=== PATIENT | male | born 1985 | race Caucasian/White ===

== ENCOUNTER 2017-03-31 08:44 | Emergency (ER) | payer OTHER ==
[2017-03-31 08:52] VITALS: BP 128/63
--- NOTE | 2017-03-31 09:02 | ED Physician Documentation ---
PD HPI BACK PAIN - Stated complaint Stated Complaint: LOW BACK PX - Chief complaint Chief Complaint: Back Pain - History obtained from History obtained from: Patient - History of Present Illness Timing - onset: How many days ago (3) Timing - duration: Days (3) Timing - details: Abrupt onset (just with a mild twist turning to open mailbox.) , Still present, Waxing and waning. No: Intermittant Location: Lower, Right, Left Quality: Pain, Spasm, Sharp Associated symptoms: No: Fever, Weakness, Numbness, Incontinent of urine, Unable to urinate Improves with: Rest Worsened by: Movement, Twisting Contributing factors: Twisting Similar symptoms before: Diagnosis (he had a fall injury last year and was told he had an injury in low back by CT scan, but he was not sure if fracture or disc. It has not bothered him once healed.) Recently seen: Not recently seen Review of Systems Constitutional: denies: Fever, Chills, Myalgias Cardiac: denies: Chest pain / pressure Respiratory: denies: Dyspnea GI: denies: Abdominal Pain, Nausea, Vomiting, Diarrhea : denies: Dysuria, Frequency Neurologic: denies: Focal weakness, Numbness PD PAST MEDICAL HISTORY - Past Medical History Cardiovascular: None Respiratory: None Neuro: None Endocrine/Autoimmune: None Musculoskeletal: None - Present Medications Home Medications: Ambulatory Orders Medication Instructions Recorded Confirmed HYDROcod/ACETAM 5/325 [[place] 5/325] 1 tab PO Q6H PRN #15 tablet 03/31/17 Methocarbamol [Robaxin] 500 mg PO Q6H PRN #25 tablet 03/31/17 Naproxen [Naprosyn] 500 mg PO BID PRN #20 tablet 03/31/17 - Allergies Allergies/Adverse Reactions: Allergies Allergy/AdvReac Type Severity Reaction Status Date / Time No Known Drug Allergies Allergy Verified 03/31/17 08:52 PD ED PE NORMAL - Vitals Vital signs reviewed: Yes - General General: Alert and oriented X 3, Well developed/nourished, Other (appears uncomfortable.) - HEENT HEENT: Pharynx benign - Neck Neck: Supple, no meningeal sign, No adenopathy - Cardiac Cardiac: RRR - Respiratory Respiratory: Clear bilaterally - Abdomen Abdomen: Normal bowel sounds, Soft, Non tender, Non distended - Back Back: No CVA TTP, Other (tenderness along mid lumbar spine and adjacent muscles. No rash nor sores. ) - Derm Derm: Normal color, Warm and dry - Neuro Neuro: Alert and oriented X 3, No motor deficit, No sensory deficit, Normal speech, Other (normal knee reflexes) Results - Vitals Vitals: Oxygen O2 Source Room air - Rads (name of study) lumbar CT Radiology: Prelim report reviewed (no lumbar processes. Small kidney stone in kidney. ), EMP read contemporaneously PD MEDICAL DECISION MAKING - ED course Complexity details: reviewed results, considered differential (Abrupt pain midline with history of prior disc or compressive injury last year. Got CT to eval for compression/other process acutely. No neuro symptoms. ), d/w patient Departure - Departure Disposition: Home, Self Care Clinical Impression: Acute low back pain Qualifiers: Back pain laterality: bilateral Sciatica presence: without sciatica Qualified Code(s): M54.5 - Low back pain Condition: Stable Record reviewed to determine appropriate education?: Yes Instructions: ED Spasm Back No Trauma, ED Sprain Strain Lumbar Follow-Up: [facility] [Provider Group] Prescriptions: HYDROcod/ACETAM 5/325 [[place] 5/325] 1 tab PO Q6H PRN #15 tablet PRN Reason: Pain Methocarbamol [Robaxin] 500 mg PO Q6H PRN #25 tablet PRN Reason: Spasms Naproxen [Naprosyn] 500 mg PO BID PRN #20 tablet PRN Reason: Pain Comments: Heat and gentle range of motion for the back several times a day. No heavy lifting or repetitive bending. Off work for couple of days likely. Naproxen twice daily as an anti-inflammatory add methocarbamol for spasms. Add Tylenol or hydrocodone if needed for pains. Follow-up with your primary care not improving over the next 3-5 days. Progress use as you are feeling better. Forms: Activity restrictions Discharge Date/Time: 03/31/17 11:12
[2017-03-31] MEDS ORDERED: KETOROLAC 60 MG/2 ML VIAL IM STA (09:34)
[2017-03-31] MEDS ORDERED: ACETAMINOPHEN 325 MG TABLET PO STA (09:34)
--- NOTE | 2017-03-31 11:02 | CT Report ---
EXAM: CT LUMBAR SPINE WITHOUT CONTRAST EXAM DATE: 03/31/2017 10:42 AM. CLINICAL HISTORY: Abrupt low back pain 2 days ago. COMPARISONS: None. TECHNIQUE: Thin-section axial images were acquired of the lumbar spine from T12 to S1 without contras t. Post-processing: Coronal and sagittal reformats. Other: None. In accordance with CT protocol optimization, one or more of the following dose reduction techniques w ere utilized for this exam: automated exposure control, adjustment of mA and/or KV based on patient s ize, or use of iterative reconstructive technique. FINDINGS: Alignment: No scoliosis or spondylolisthesis. Bones: Five [id number] lumbar vertebral bodies are present. No fractures or bone lesions. Disk Levels/Facets: T12-L1: Unremarkable. L1-L2: Unremarkable. L2-L3: Unremarkable. L3-L4: Unremarkable. L4-L5: Unremarkable. L5-S1: Unremarkable. Musculature: Normal. No fatty atrophy. Other: There is a tiny 2 mm nonobstructing stone in the midpole of the right kidney. There are a few prominent lymph nodes near the IVC, but there is dew do not appear to be enlarged by size criteria. V isualized portion of the appendix is normal. There is a small amount of atherosclerotic disease in th e right common iliac artery. IMPRESSION: 1. No abnormality of the lumbar spine. 2. Tiny 2 mm nonobstructing stone in the midpole the right kidney. [facility] Referring Provider Line: [phone] SITE ID: [id number]
== END 2017-03-31 11:12 | disposition home or self-care (01) ==
LOC: ED 08:44
DX: M54.5 Low back pain (principal)
CPT/HCPCS: 72131; 96372; 99283; A9270